=== PATIENT | male | born 1950 | race Caucasian/White ===

== ENCOUNTER 2016-09-09 14:34 | Emergency (ER) | payer BC ==
[2016-09-09] MEDS ORDERED: BACIGUENT PACKET TP ONE (14:45)
[2016-09-09] MEDS ORDERED: Marcaine 0.5% SDV 10 ML IJ ONE (14:45)
[2016-09-09] MEDS ORDERED: Adacel Vial IM ONE ×2 (14:45→15:10)
[2016-09-09] MEDS ORDERED: XYLOCAINE 1% HCL 20 ML MDV IJ ONE (14:45)
[2016-09-09] MEDS ORDERED: XYLOCAINE 1% HCL 20 ML MDV ONE (14:48)
[2016-09-09] MEDS ORDERED: Marcaine 0.5% SDV 10 ML ONE (14:48)
--- NOTE | 2016-09-09 15:02 | ERPHSYRPT ---
- History of Present Illness Time Seen by Provider: 09/09/16 14:42 Source: patient Patient Subjective Stated Complaint: PT REPORTS HE CUT HIS TOE ON HEDGETRIMMERS- DENIES PAIN-UNSURE OF WHEN LAST TET VAC WAS Triage Nursing Assessment: LAC NOTED TO BIG TOE OF LEFT FOOT-BLEEDING CONTROLLED UPON ARRIVAL- Physician History: CC: toe injury Hx: 66 y/o [employer] worker cut himself at home on sausage meat trimmer on left great toe. Needs tetanus vaccine. He has mild bleeding. No other injuries. He has hx of DM. Occurred: just prior to arrival Lower Extremities Pain: 1st toe: left Allergies/Adverse Reactions: No Known Drug Allergies Allergy (Unverified 09/09/16 14:42) Home Medications: Aspirin [Pavel Chewable] 81 mg PO DAILY 09/09/16 [History] Atorvastatin Calcium [Lipitor] 10 mg PO DAILY 09/09/16 [History] Fenofibric Acid (Choline) [Fenofibric Acid] 135 mg PO DAILY 09/09/16 [History] Liraglutide [Victoza 2-Patrick] 1.8 mg SQ DAILY 09/09/16 [History] Lisinopril 10 mg [Zestril 10 MG] 10 mg PO DAILY 09/09/16 [History] Sitagliptin Phos/Metformin HCl [Janumet 50-1,000 mg Tablet] 1 each PO DAILY [History] Hx Tetanus, Diphtheria Vaccination/Date Given: No Hx Influenza Vaccination/Date Given: Yes Hx Pneumococcal Vaccination/Date Given: Yes Immunizations Up to Date: No - Review of Systems Constitutional: No Symptoms Musculoskeletal: Injury (left great toe) - Past Medical History Pertinent Past Medical History: Yes Cardiac History: Hypertension Endocrine Medical History: Diabetes Type II - Past Surgical History Past Surgical History: Yes Other Surgical History: KIDNEY STONE REMOVED - Social History Smoking Status: Never smoker Exposure to second hand smoke: No Drug Use: none Patient Lives Alone: No - Nursing Vital Signs Nursing Vital Signs: Initial Vital Signs Temperature 98.1 F 09/09/16 14:40 Pulse Rate 71 09/09/16 14:40 Respiratory Rate 18 09/09/16 14:40 Blood Pressure 148/76 09/09/16 14:40 O2 Sat by Pulse Oximetry 97 09/09/16 14:40 Pain Scale Pain Intensity 0 - Physical Exam General Appearance: alert Neck Exam: supple Cardiovascular/Respiratory Exam: regular rate/rhythm Neuro/Tendon Exam: normal sensation, normal motor functions Mental Status Exam: alert, oriented x 3, cooperative Skin Exam: warm, dry SpO2: 97 Oxygen Delivery: Room Air Comments: left great toe has 1cm distal laceration to bed. The nail is thickened with fungal infection. Procedures - Laceration/Wound Repair left great toe Wound Location: Left Wound Length (cm): 3 Wound's Depth, Shape: linear (including nail bed) Irrigated: Yes Hibiclens Prep: Yes Anesthesia: digital block, 1% Lidocaine, marcaine 0.5 Volume Anesthetic (ccs): 4 Progress: 09/09/16 15:37 There is total length laceration 3 cm including distal toe and thru nail into nail bed but fairly superficial. After cleansing with betadine and digital block , the left great toe nail was removed. It was thick, irregular, and onychomycotic. The wound was cleansed. 5-0 vicryl # 3 simple interupted used to close the nail bed laceration. The skin was closed with 4-0 nylon simple interupted #3. Pt tolerated well. Bacitracin and telfa nail bed dressing applied and wrapped with loose tube gauze. Wound instr given. - Course Nursing assessment & vital signs reviewed: Yes Ordered Tests: Active Orders 24 hr Category Date Time Status Wound Care STAT Care 09/09/16 14:45 Active Medication Summary Discontinued Medications Generic Name Dose Route Start Last Admin Trade Name Freq PRN Reason Stop Dose Admin Bacitracin 0.9 gm 09/09/16 14:45 09/09/16 15:15 Baciguent Packet TP 09/09/16 14:46 0.9 gm STAT ONE Administration Bacitracin Confirm 09/09/16 15:10 Baciguent Packet Administered 09/09/16 15:11 Dose 1 gm .ROUTE .STK-MED ONE Bupivacaine HCl 5 ml 09/09/16 14:45 09/09/16 15:16 Marcaine 0.5% Sdv 10 Ml IJ 09/09/16 14:46 5 ml STAT ONE Administration Bupivacaine HCl Confirm 09/09/16 14:48 Marcaine 0.5% Sdv 10 Ml Administered 09/09/16 14:49 Dose 10 ml .ROUTE .STK-MED ONE Diphtheria/Tetanus/Acell Pertussis 0.5 ml 09/09/16 14:45 09/09/16 15:15 Adacel Vial IM 09/09/16 14:46 0.5 ml .ONCE ONE Administration Diphtheria/Tetanus/Acell Pertussis Confirm 09/09/16 15:10 Adacel Vial Administered 09/09/16 15:11 Dose 0.5 ml IM .STK-MED ONE Lidocaine HCl 5 ml 09/09/16 14:45 09/09/16 15:16 Xylocaine 1% Hcl 20 Ml Mdv IJ 09/09/16 14:46 5 ml STAT ONE Administration Lidocaine HCl Confirm 09/09/16 14:48 Xylocaine 1% Hcl 20 Ml Mdv Administered 09/09/16 14:49 Dose 5 ml .ROUTE .STK-MED ONE - Progress Progress Note: 09/09/16 15:39 Pt declined xray and it did not appear to be indicated. Counseled pt/family regarding: diagnosis, need for follow-up - Departure Time of Disposition: 15:40 Departure Disposition: Home Clinical Impression: Laceration of left great toe with damage to nail Qualifiers: Encounter type: initial encounter Foreign body presence: without foreign body Qualified Code(s): S91.212A - Laceration without foreign body of left great toe with damage to nail, initial encounter Condition: Stable Critical Care Time: No Referrals: GERARDO JONES [Primary Care Provider] - Instructions: Care for a Laceration After Repair Additional Instructions: Starting tomorrow night, epson salt soaks briefly twice a day. Rx keflex. Tylenol if needed for discomfort. Nylon suture removal in 10 days. LACERATION CARE 1. Do not use peroxide, merthiolate, alcohol, or betadine. 2. Keep wound clean and dry. 3. Change dressing if it becomes wet or soiled. 4. If you must work, wear protective covering. 5. You may return to the emergency department or see your family physician for suture removal. 6. See your family physician or return to the emergency department for any of the following signs or symptoms: A. Redness B. Swelling C. Discolored drainage D. Red streaks E. Elevated temperature F. Other signs of infection Prescriptions: Cephalexin Mh 500 mg [Keflex 500 mg] 1 cap PO QID #28 capsule
[2016-09-09] MEDS ORDERED: BACIGUENT PACKET ONE (15:10)
[2016-09-09 15:50] VITALS: BP 140/72; PULSE 70; O2SAT 96
== END 2016-09-09 15:50 | disposition home or self-care (01) ==
LOC: ED 14:34
PROC: 0HQNXZZ Repair Left Foot Skin, External Approach (ICD-10-PCS; principal; 2016-09-09)
DX: S91.212A Laceration without foreign body of left great toe with damage to nail, initial encounter (principal); W29.3XXA Contact with powered garden and outdoor hand tools and machinery, initial encounter
CPT/HCPCS: 12002; 90471; 90715; 99283; A9270-GY

== ENCOUNTER 2020-08-17 16:48 | Emergency (ER) | payer BC, OTHER ==
[2020-08-17 17:01] VITALS: BP 153/79; PULSE 63; O2SAT 98
[2020-08-17] MEDS ORDERED: Adacel Vial IM ONE ×2 (17:25→17:28)
--- NOTE | 2020-08-17 17:38 | ERPHSYRPT ---
- History of Present Illness Time Seen by Provider: 08/17/20 16:48 Source: patient Exam Limitations: no limitations Patient Subjective Stated Complaint: lac to L hand Triage Nursing Assessment: pt to ED with lac to L hand, noted about 1 cm to lateral palm. bleeding controlled on arrival, covered with bandaid by pt. pt states only 1/10 pain. reports he cut hand on razor blade knife at work. unknown tetanus status Physician History: 70 years old male right-handed dominant presented in the ER with chief complaint of left palm laceration accidentally with a blade at work. There was bleeding initially but stopped with applying pressure. It happened almost 2 hours ago. Patient reports mild dull aching pain but no limitation movements of the fingers. Unsure about tetanus status. Timing/Duration: today Quality: painful Severity: mild Location: hands Associated Symptoms: denies symptoms Allergies/Adverse Reactions: No Known Drug Allergies Allergy (Verified 08/17/20 17:01) Home Medications: Aspirin [Pavel Chewable] 81 mg PO DAILY 09/09/16 [History] Atorvastatin Calcium [Lipitor] 10 mg PO DAILY 09/09/16 [History] Liraglutide [Victoza 2-Patrick] 1.8 mg SQ DAILY 09/09/16 [History] Lisinopril 10 mg [Zestril 10 MG] 10 mg PO DAILY 09/09/16 [History] Sitagliptin Phos/Metformin HCl [Janumet 50-1,000 mg Tablet] 1 each PO DAILY 09/09/16 [History] Pen Needle, Diabetic [Bd Ultra-Fine Pen Needle] 1 unit SQ DAILY 08/17/20 [History] Hx Tetanus, Diphtheria Vaccination/Date Given: No (unk) Hx Influenza Vaccination/Date Given: Yes Hx Pneumococcal Vaccination/Date Given: No Immunizations Up to Date: No Travel Risk - International Travel Have you traveled outside of the country in past 3 weeks: No - Coronavirus Screening Are you exhibiting any of the following symptoms?: No Close contact with a COVID-19 positive Pt in past 14-21 Days: No - Vaccine Status Have you recieved a Covid-19 vaccination: Yes 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 - Vaccination Dates Date of 2cond Vaccination (if applicable): mar - Review of Systems Constitutional: No Symptoms Eyes: No Symptoms Ears, Nose, & Throat: No Symptoms Respiratory: No Symptoms Cardiac: No Symptoms Genitourinary Symptoms: No Symptoms Musculoskeletal: Injury Skin: Skin Lesions Neurological: No Symptoms Endocrine: No Symptoms Hematologic/Lymphatic: No Symptoms Immunological/Allergic: No Symptoms - Past Medical History Pertinent Past Medical History: Yes Cardiac History: Hypertension Endocrine Medical History: Diabetes Type II - Past Surgical History Past Surgical History: Yes Other Surgical History: KIDNEY STONE REMOVED - Social History Smoking Status: Never smoker Exposure to second hand smoke: No Drug Use: none Patient Lives Alone: No - Nursing Vital Signs Nursing Vital Signs: Initial Vital Signs Temperature 96.4 F 08/17/20 16:54 Pulse Rate 63 08/17/20 16:54 Respiratory Rate 16 08/17/20 16:54 Blood Pressure 153/79 08/17/20 16:54 O2 Sat by Pulse Oximetry 98 08/17/20 16:54 Pain Scale Pain Intensity 1 - Physical Exam General Appearance: no apparent distress, alert Eye Exam: eyes nml inspection Neck Exam: normal inspection, full range of motion Respiratory Exam: normal breath sounds, lungs clear Cardiovascular Exam: regular rate/rhythm, normal heart sounds Extremity Exam: tenderness, other (Superficial laceration left hand palm medial aspect 1.25 cm with no active spurting, minimal ooze. Intact range of motion at fifth digit. Cap refill less than 3 seconds.) Neurologic Exam: alert, oriented x 3, cooperative Skin Exam: normal color SpO2 Interpretation: normal SpO2: 98 O2 Delivery: Room Air Procedures - Laceration/Wound Repair Left Medial Hand Time of Procedure: 17:30 Wound Location: Left, hand Wound Length (cm): 1.25 Wound's Depth, Shape: superficial Wound Explored: clean Irrigated: Yes Hibiclens Prep: Yes Anesthesia: local, 1% Lidocaine Volume Anesthetic (ccs): 2 Wound Repaired With: sutures Suture Size/Type: 4-0, nylon Number of Sutures: 3 Layer Closure?: No Sterile Dressing Applied?: Yes Ordered Tests: Medication Summary Discontinued Medications Generic Name Dose Route Start Last Admin Trade Name Freq PRN Reason Stop Dose Admin Diphtheria/Tetanus/Acell Pertussis 0.5 ml 08/17/20 17:25 08/17/20 17:30 Adacel Vial IM 08/17/20 17:26 0.5 ml .ONCE ONE Administration Diphtheria/Tetanus/Acell Pertussis Confirm 08/17/20 17:28 Adacel Vial Administered 08/17/20 17:29 Dose 0.5 ml IM .STK-MED ONE - Progress Progress: improved Progress Note: 08/17/20 17:38 Superficial laceration repaired with suturing. Tetanus is updated. Discussed signs symptoms of infection needing return to ER which he seems understanding. Counseled pt/family regarding: diagnosis, need for follow-up - Departure Departure Disposition: Home Clinical Impression: Laceration of left hand Qualifiers: Encounter type: initial encounter Foreign body presence: without foreign body Qualified Code(s): S61.412A - Laceration without foreign body of left hand, initial encounter Condition: Stable Critical Care Time: No Referrals: GERARDO JONES [Primary Care Provider] - Follow Up with PCP/3 days Instructions: Laceration Repair With Stitches (DC) Additional Instructions: Keep it clean. Watch for signs of infection like increasing swelling/redness/discharge from the wound/difficulty movements of finger/hand/fever chills etc. Suture removal in 10 to 14 days. Avoid exertional activities with left hand.
== END 2020-08-17 17:47 | disposition home or self-care (01) ==
LOC: ED 16:48
DX: S61.412A Laceration without foreign body of left hand, initial encounter (principal); W45.8XXA Other foreign body or object entering through skin, initial encounter; Y92.9 Unspecified place or not applicable; Y99.0 Civilian activity done for income or pay; Z79.899 Other long term (current) drug therapy; E11.9 Type 2 diabetes mellitus without complications; I10 Essential (primary) hypertension
CPT/HCPCS: 12001; 90471; 90715; 99283